=== PATIENT | female | born 2000 | race Caucasian/White ===

== ENCOUNTER 2025-02-27 11:41 | Emergency (ER) | payer OTHER ==
[~2025-02-27] VITALS: Ht 157.5 cm; Wt 72.7 kg
[2025-02-27] MEDS: ALBUTEROL SULFATE 2.5 MG/0.5 ML NEB SOLUTION NEB ONE (12:02)
[2025-02-27] MEDS: IPRATROPIUM BROMIDE 0.5 MG/2.5 ML NEB SOLUTION NEB ONE (12:02)
[2025-02-27 12:04] VITALS: PULSE 80; RESP 16; O2SAT 66; O2SAT 99
[2025-02-27 12:05] VITALS: PULSE 84; RESP 16; O2SAT 99
[2025-02-27] MEDS ORDERED: PRED-554 PO (12:43)
[2025-02-27] MEDS ORDERED: ALBU2.5V39 NEB (12:53)
[2025-02-27] MEDS ORDERED: ALBU18HF12 IH (12:53)
[2025-02-27 13:12] VITALS: BP 141/87; PULSE 80; RESP 16; TEMP 98.2; O2SAT 96
== END 2025-02-27 13:20 | disposition home or self-care (01) ==
LOC: EMS 11:45
DX: J45.909 Unspecified asthma, uncomplicated (principal); F32.A Depression, unspecified
CPT/HCPCS: 99283; 94640; J7512